=== PATIENT | male | born 1955 | race Caucasian/White ===

== ENCOUNTER → 2017-07-21 08:13 | Outpatient (CLI) | payer MEDICARE ==
[2016-01-22 12:40] VITALS: BMI 35.2
[~2017-07-21 08:13] MED LIST: AMBIEN10 MG PO; AMITRIPTYLINE H50 MG PO; HYDROCODONE-APA1 TAB PO; PHENERGAN25 M1 PO; PRILOSEC20 MG PO; SALINE FLUSH10 ML IV; TORADOL10 MG PO; VANCOMYCIN 1 GM/1 G1 IV; ZOLOFT100 MG PO
== END | disposition home or self-care (01) ==
LOC: D.CT 08:13
DX: R55 Syncope and collapse (principal)

== ENCOUNTER 2017-07-31 06:35 | Outpatient (CLI) | payer MEDICARE ==
--- NOTE | ~2017-07-31 | HEMODYNAMI ---
PATIENT:ASTON WING MEDICAL RECORD: [id number] : 59 LOCATION:[facility] ADMISSION DATE: 07/31/17 Generatedon:07/31/20179:06 Patient name: ASTON WING Patient #: [id number] SSN : : 1955 Date of study: 07/31/2017 Page: Of Hemodynamic Procedure Report Patient Data Patient Demographics Procedure consent was obtained First Name: ASTON Gender: Male Last Name: MACIEJ : 1955 [facility] Initial: RAMAKRISHNA Age: 61 year(s) Patient #: [id number] Race: Additional ID: [id number] Contact details Address: [address] [place] [address] ROAD State: [place] City: [facility] Zip code: [address] Past Medical History Allergies Allergen Reaction Date Comments Reported Penicillins 02/07/2015 Penicillins 07/31/2017 Admission Admission Data Admission Date: 07/31/2017 Admission Time: 6:35 Procedure Procedure Types Cath Procedure Diagnostic Procedure PPM/ICD Loop Recorder Implant Procedure Description Procedure Date Procedure Date: 07/31/2017 Procedure Start Time: 8:59 Procedure End Time: 9:06 Procedure Staff Name Function Osei Jones MD Performing Physician Emiliana Martinez RT Monitor Ernie Spencer RT Scrub Tom Horton RN Nurse Procedure Data Cath Procedure Estimated blood loss: 0 ml Procedure Complications No complications Procedure Medications Medication Administration Route Dosage Vancomycin I.V.P.B 500 mg Versed I.V. 2 mg Hemodynamics Rest Heart Rate: 77 (bpm) Snapshots Pre Cath Intra NCS Post Cath Vital Signs Time Heart Resp SPO2 etCO2 NIBP (mmHg) Rhythm Pain Sedation Rate (ipm) (%) (mmHg) Status Level (bpm) 8:52:03 78 13 98 0 154/84(109) NSR 0 (11) 10(A) , No pain 8:57:02 77 17 97 0 Measuring NSR 0 (11) 10(A) , No pain 8:57:36 80 16 96 0 148/91(117) NSR 0 (11) 10(A) , No pain 9:02:25 85 14 97 0 153/88(121) NSR 0 (11) 10(A) , No pain Medications Time Medication Route Dose Verified Delivered Reason Notes Effectiven ess by by 8:55:40 Vancomycin I.V.P.B 500 Oseicanelo Santos Per mg Karen Horton RN physician MD 8:57:23 Versed I.V. 2 mg Osei Tom for Karen Horton RN sedation MD Procedure Log Time Note 8:30:03 Tom Horton RN sent for patient. Start room use. 8:40:04 Time tracking: Regular hours 8:40:07 Plan of Care:Hemodynamics will remain stable., Cardiac rhythm will remain stable., Comfort level will be maintained., Respiratory function will remain adequate., Patient/ family verbilizes understanding of procedure., Procedure tolerated without complication., Recovers from procedure without complications.. 8:42:00 Stapler Skin 35W Proximate Plus (PMW35) opened to sterile field. 8:42:01 Medtronic Linq Loop Recorder opened to sterile field. 8:44:26 Patient received from Pre/Post Procedure Room to CCL 1 Alert and oriented. Tansferred to table in Supine position. 8:44:27 Warm blankets applied, and perla hugger turned on for patient comfort. 8:44:28 Correct patient and procedure confirmed by team. 8:44:29 Signed procedure consent form obtained from patient. 8:44:30 ECG and BP/O2 sat monitors applied to patient. 8:44:30 Full Disclosure recording started 8:50:57 Vital chart was started 8:55:21 Baseline sample Acquired. 8:55:26 Rhythm: sinus rhythm 8:55:39 H&P Date Dictated: 07/28/2017 Within 30 days and on chart., H&P Addendum completed by physician on day of procedure. (MUST COMPLETE FOR ALL OUTPATIENTS). 8:55:40 Vancomycin 500 mg I.V.P.B was administered by Tom Horton RN; Per physician; 8:55:40 Pre-procedure instructions explained to patient. 8:55:40 Pre-op teaching completed and patient verbalized understanding. 8:55:43 Family in patients room. 8:55:45 Patient NPO since Midnight. 8:55:52 Patient allergic to Penicillins 8:55:55 Is the patient allergic to Iodine/contrast media? No. 8:55:57 Is patient on blood thinner?No 8:55:58 Patient diabetic? No. 8:56:02 Previous problem with sedation/anesthesia? No ? 8:56:02 Snore? Yes 8:56:04 Sleep apnea? No 8:56:11 Deviated septum? No 8:56:11 Opens mouth fully? Yes 8:56:12 Sticks out tongue? Yes 8:56:16 Airway obstruction? Yes COPD 8:56:17 Dentures? No ? 8:56:20 Patient pain scale 0/10 ?. 8:56:24 IV patent on arrival in left hand with 0.9% NaCl at [facility]. 8:56:26 Lab results completed and on chart. 8:56:29 Mid Chest area was prepped with chlora-prep and draped in sterile fashion 8:56:30 Alarms reviewed by R. N. 8:56:30 Sharps counted by scrub and verified by R.N. 8:56:32 Final Timeout: patient, procedure, and site verified with staff and physician. All members of the team are in agreement. 8:56:36 Mid Chest site verified by team. 8:56:40 Physical assessment completed. ASA score P 2 - A patient with mild systemic disease as per Osei Jones MD. 8:56:43 Sedation plan: IV Moderate Sedation Medication:Versed, Fentanyl 8:57:23 Versed 2 mg I.V. was administered by Tom Horton RN; for sedation; 8:58:50 Procedure started. 8:59:01 Lidocaine 2% was administered to mid chest by Osei Jones MD . 9:00:16 Incision made to mid chest. 9:01:08 Linq was inserted subcutaneously to mid chest. 9:01:13 Skin closure was completed with 35mm Okarche. 9:01:23 Procedure ended.(Physican Out) 9:01:46 Insertion/operative site no bleeding no hematoma. 9:01:52 Post procedure rhythm: unchanged. 9:01:57 Estimated blood loss: 0 ml 9:02:10 Post procedure instruction explained to patient.Patient verbalizes understanding. 9:02:11 Patient needs reinforcement of post procedure teaching. 9:02:23 Procedure Complication : No complications 9:02:25 See physician's report for complete and final results. 9:02:31 Tegaderm 4 x 4 (1626W) opened to sterile field. 9:03:56 Procedure and supply charges have been captured, reviewed, submitted and are correct. 9:06:00 Vital chart was stopped 9:06:05 Report given to Pre/Post Procedure Room. 9:06:08 Patient transfered to Pre/Post Procedure Room with Stretcher. 9:06:15 Procedure ended. 9:06:15 Full Disclosure recording stopped 9:06:19 End room use (Document Last) Device Usage Item Name Manufacture Quantity Catalog Hospital Part Current Minimal Lot# / Number Charge Number Stock Stock Serial# Code Stapler Unknown 1 [id number] 5 Skin 35W Proximate Plus (PMW35) Medtronic Medtronic 1 [id number] 5 SN Linq Loop [id number] Recorder EXP 2017-08-12 Tegaderm 3M 1 [id number] 5 4 x 4 (1626W) Signature Audit [place] Stage Time Signature Unsigned Intra-Procedure 07/31/2017 Emiliana 9:06:36 AM Counts RT(R) Signatures Monitor : Emiliana Signature : Counts RT Date : Time : [address] [address]
[2017-07-31] MEDS ORDERED: AMITRIPTYLINE H50 MG PO (06:41)
[2017-07-31] MEDS ORDERED: CLEOCIN HCL300 MG PO (06:41)
[2017-07-31] MEDS ORDERED: IBUPROFEN800 MG PO (06:42)
[2017-07-31] MEDS ORDERED: ANORO ELLIPTA1 EACH INH (06:43)
[2017-07-31] MEDS ORDERED: PROAIR HFA8.5 GM INH (06:44)
[2017-07-31] MEDS ORDERED: LIPITOR40 MG PO (06:44)
[2017-07-31 06:49] VITALS: BP 130/78; BMI 34.3
== END 2017-07-31 10:17 | disposition home or self-care (01) ==
LOC: D.CATH 06:35
DX: R55 Syncope and collapse (principal); I10 Essential (primary) hypertension; F17.200 Nicotine dependence, unspecified, uncomplicated; Z01.812 Encounter for preprocedural laboratory examination

== ENCOUNTER 2017-08-13 06:54 | Outpatient (CLI) | payer MEDICARE ==
[~2017-08-13] VITALS: Ht 177.8 cm; Wt 111.8 kg
--- NOTE | ~2017-08-13 | HEMODYNAMI ---
PATIENT:ASTON WING MEDICAL RECORD: [id number] : 59 LOCATION:[facility] ADMISSION DATE: 08/13/17 Generatedon:08/13/201710:13 Patient name: ASTON WING Patient #: [id number] SSN : : 1955 Date of study: 08/13/2017 Page: Of Hemodynamic Procedure Report Patient Data Patient Demographics Procedure consent was obtained First Name: ASTON Gender: Male Last Name: MACIEJ : 1955 [facility] Initial: RAMAKRISHNA Age: 61 year(s) Patient #: [id number] Race: Additional ID: [id number] Contact details Address: [address] [place] [address] RO[address] State: [place] City: [facility] Zip code: [address] Past Medical History Allergies Allergen Reaction Date Comments Reported Penicillins 02/07/2015 Penicillins 07/31/2017 Admission Admission Data Admission Date: 08/13/2017 Admission Time: 6:54 Procedure Procedure Types Cath Procedure Diagnostic Procedure PPM/ICD PPM Dual Implant Sedation Charges Moderate Sedation up to 30 minutes Procedure Description Procedure Date Procedure Date: 08/13/2017 Procedure Start Time: 9:30 Procedure End Time: 10:07 Procedure Staff Name Function Osei Jones MD Performing Physician Danni Costa RT Monitor Meredith Whalen RT Scrub Tom Horton RN Nurse Procedure Data Cath Procedure Fluoroscopy Diagnostic fluoroscopy Total fluoroscopy Time: 4.6 time: 4.6 min min Diagnostic fluoroscopy Total fluoroscopy dose: 195 dose: 195 mGy mGy Contrast Material Contrast Material Type Amount (ml) Visipaque 270 20 Estimated blood loss: 5 ml Procedure Complications No complications Procedure Medications Medication Administration Route Dosage Vancomycin I.V.P.B 1 g Vancomycin Topical 1 g Irrigation Fentanyl I.V. 50 mcg Versed I.V. 1 mg Fentanyl I.V. 50 mcg Versed I.V. 1 mg Hemodynamics Rest Heart Rate: 75 (bpm) Snapshots Pre Cath Intra NCS Post Cath Vital Signs Time Heart Resp SPO2 NIBP (mmHg) Rhythm Pain Sedation Rate (ipm) (%) Status Level (bpm) 9:17:11 80 15 97 145/107(124) NSR 0 (11) 10(A) , No pain 9:21:35 72 17 100 158/97(126) NSR 0 (11) 10(A) , No pain 9:26:06 70 18 99 159/100(129) NSR 0 (11) 10(A) , No pain 9:30:38 72 18 99 156/96(132) NSR 0 (11) 10(A) , No pain 9:35:11 75 15 96 162/99(140) NSR 0 (11) 9(A) , No pain 9:39:41 77 18 100 158/100(148) NSR 0 (11) 9(A) , No pain 9:44:16 82 17 97 151/117(131) NSR 0 (11) 9(A) , No pain 9:50:00 82 15 97 158/95(130) NSR 0 (11) 9(A) , No pain 9:54:32 79 14 98 134/94(111) NSR 0 (11) 9(A) , No pain 9:58:56 90 17 98 139/105(122) NSR 0 (11) 10(A) , No pain 10:10:16 75 15 99 Time NSR 0 (11) 10(A) Exceeded , No pain Medications Time Medication Route Dose Verified Delivered Reason Notes Effectiven ess by by 9:26:53 Vancomycin I.V.P.B 1 g Osei Tom Per Karen Horton RN physician 9:27:02 Vancomycin Topical 1 g Osei Tom Per Irrigation Karen Horton RN physician 9:31:07 Fentanyl I.V. 50 Osei Tom for mcg Karen Horton RN sedation 9:31:15 Versed I.V. 1 mg Osei Tom for Karen Horton RN sedation 9:34:33 Fentanyl I.V. 50 Osei Tom for mcg Karen Horton RN sedation 9:34:37 Versed I.V. 1 mg Osei Tom for Karen Horton RN sedation Procedure Log Time Note 8:55:32 Tom Horton RN sent for patient. Start room use. 9:05:56 Informed consent obtained and on chart 9:05:59 Diagnostic Cath Status : Elective 9:06:43 Time tracking: Regular hours 9:06:47 Plan of Care:Hemodynamics will remain stable., Cardiac rhythm will remain stable., Comfort level will be maintained., Respiratory function will remain adequate., Patient/ family verbilizes understanding of procedure., Procedure tolerated without complication., Recovers from procedure without complications.. 9:06:58 Patient received from Pre/Post Procedure Room to CCL 3 Alert and oriented. Tansferred to table in Supine position. 9:07:03 Warm blankets applied, and perla hugger turned on for patient comfort. 9:07:04 Correct patient and procedure confirmed by team. 9:07:04 ECG and BP/O2 sat monitors applied to patient. 9:15:50 Vital chart was started 9:15:51 Baseline sample Acquired. 9:15:59 Full Disclosure recording started 9:16:04 H&P Date Dictated: 08/13/2017 Within 30 days and on chart., H&P Addendum completed by physician on day of procedure. (MUST COMPLETE FOR ALL OUTPATIENTS). 9:16:06 Pre-procedure instructions explained to patient. 9:16:06 Pre-op teaching completed and patient verbalized understanding. 9:16:08 Family in waiting room. 9:16:10 Patient NPO since Midnight. 9:16:12 Is the patient allergic to Iodine/contrast media? No. 9:16:13 Was the patient premedicated? No 9:16:15 Is patient on blood thinner?No 9:17:43 Patient diabetic? No. 9:17:46 Previous problem with sedation/anesthesia? No ? 9:17:48 Snore? Yes 9:17:49 Sleep apnea? No 9:17:51 Deviated septum? No 9:17:52 Opens mouth fully? Yes 9:17:53 Sticks out tongue? Yes 9:17:59 Airway obstruction? Yes copd 9:18:02 Dentures? No ? 9:18:07 Pre procedure: right dorsailis pedis pulse 2+ Normal; easily identifiable; not easily obliterated 9:18:10 Pre procedure: left dorsailis pedis pulse 2+ Normal; easily identifiable; not easily obliterated 9:18:17 Patient pain scale 0/10 ?. 9:18:25 IV patent on arrival in right antecubital, left antecubital with 0.9% NaCl at O. 9:18:29 Lab results completed and on chart. 9::55 Alarms reviewed by Mark N. 9::55 Sharps counted by scrub and verified by R.N. 9:19:57 Physician arrived 9::58 --------ALL STOP TIME OUT------ 9::58 Final Timeout: patient, procedure, and site verified with staff and physician. All members of the team are in agreement. 9:20:06 Left chest site verified by team. 9:20:26 Physical assessment completed. ASA score P 2 - A patient with mild systemic disease as per Osei Jones MD. 9:20:31 Sedation plan: IV Moderate Sedation Medication:Versed, Fentanyl 9:26:00 Medtronic business representative Jerome Parish present for procedure. 9:26:11 Grounding pad site Right thigh. 9:26:15 Grounding pad site free from injury. 9:26:53 Vancomycin 1 g I.V.P.B was administered by Tom Horton RN; Per physician; 9:27:02 Vancomycin Irrigation 1 g Topical was administered by Tom Horton RN; Per physician; 9:29:55 Pre sharps counted by scrub and verified by RN: Sutures: 2; Sponges: 5; Stick needles: 2; Skin needles: 2; Blade: 1; Cautery: 1 9:30:11 Procedure started. 9:30:15 Lidocaine 1% was administered to left subclavicular area by Osei Jones MD . 9:30:26 Incision made to left subclavicular area. 9:31:07 Fentanyl 50 mcg I.V. was administered by Tom Horton RN; for sedation; 9:31:15 Versed 1 mg I.V. was administered by Tom Horton RN; for sedation; 9:31:52 Use device set CATH PACK 9:31:55 Medline Cath Pack ([id number]) opened to sterile field. 9:31:56 Bag Decanter (2002) opened to sterile field. 9:32:16 Medtronic Advisa MRI PPM Dual Generator [id number] opened to sterile field. 9:33:27 Medtronic 5076-45 PPM Lead opened to sterile field. 9:34:23 Medtronic 4074-52 PPM Lead opened to sterile field. 9:34:33 Fentanyl 50 mcg I.V. was administered by Tom Horton RN; for sedation; 9:34:37 Versed 1 mg I.V. was administered by Tom Horton RN; for sedation; 9:36:15 Generator pocket made/opened. 9:43:00 Access obtained with 4Fr micropunture. 9:43:05 Left subclavian vein accessed with 7Fr Peel Away Sheath. 9:46:35 Left subclavian vein accessed with 7Fr Peel Away Sheath. 9:52:32 Ventricular lead inserted and advanced. 9:52:37 Atrial lead inserted and advanced. 9:53:02 Ventricular lead positioned. 9:53:10 Peel-a-way sheath was split and removed. 9:53:14 Ventricular lead attachment was completed with 2-0 silk. 9:56:59 Atrial lead positioned. 9:57:00 Peel-a-way sheath was split and removed. 9:57:03 Atrial lead attachment was completed with 2-0 silk. 10:02:05 PPM Dual was attached to lead(s) and inserted into pocket. 10:02:18 Generator was sutured in place with 2-0 silk. 10:04:55 Device pocket was irrigated with Vancomycin. 10:05:00 Subcutaneous closure was completed with 3-0 vicryl. 10:05:08 Skin closure was completed with 35mm Carmi. 10:05:35 Parameters-- Generator: Mode: ?. Lower Rate: 50bpm. Upper Rate: 120bpm. 10:05:43 Procedure ended.(Physican Out) 10:05:53 Fluoroscopy time 04.60 minutes. 10:06:04 Fluoroscopy dose: 195 mGy 10:06:04 Flurop Dose total: 195 10:06:10 Contrast amount:Visipaque 270 20ml. 10:06:20 Sharps counted by scrub and verified by R.N. 10:06:21 Insertion/operative site no bleeding no hematoma. 10:06:49 Post procedure rhythm: paced 10::52 Estimated blood loss: 5 ml 10:06:53 Post procedure instruction explained to patient.Patient verbalizes understanding. 10:06:54 Patient needs reinforcement of post procedure teaching. 10:07:03 Vital chart was stopped 10:07:04 Vital chart was started 10:07:06 Procedure type changed to Cath procedure, Diagnostic procedure, PPM/ICD, PPM Dual Implant, Sedation Charges, Moderate Sedation up to 30 minutes 10:07:08 Procedure and supply charges have been captured, reviewed, submitted and are correct. 10:07:13 Procedure Complication : No complications 10:07:16 See physician's report for complete and final results. 10:07:19 Report given to Pre/Post Procedure Room. 10:07:22 Patient transfered to Pre/Post Procedure Room with Stretcher. 10:07:24 Procedure ended. 10:07:24 Full Disclosure recording stopped 10:08:17 Parameters--Ventricular P/R Wave: 8.7mV. Current: 0.4mA; Threshold: 0.6V; Impedence: 1453OHMS. 10:08:34 Parameters--Atrial P/R Wave: 2.7mV. Current: 0.4mA; Threshold: 1.4V; Impedence: 823OHMS. 10:08:43 Lt Chest incision was dressed with gauze eyepad and tegaderm. 10:09:12 End room use (Document Last) 10:13:21 Vital chart was stopped Device Usage Item Name Manufacture Quantity Catalog Hospital Part Current Minimal L ot# / Serial# Number Charge Number Stock Stock Code [facility] 1 [id number] 5 Feusd ([id number]) Bag Microtek 1 [id number] [id number] 5 fav.or.it Inc. () Medtronic Medtronic 1 A2DR01 [id number] [id number] 5 P [id number] EXP Advisa MRI 0 11-12-2018 PPM Dual Generator A2DR01 Medtronic Medtronic 1 5076-45 [id number] [id number] 5 P [id number] EXP 5076-45 PPM 1 07-21-2018 Lead Medtronic Medtronic 1 4074-52 [id number] [id number] 5 B [id number] 4074-52 PPM E [id number] Lead Signature Audit [place] Stage Time Signature Unsigned Intra-Procedure 08/13/2017 Danni Costa 10:13:17 AM RT(R) Signatures Monitor : Danni Costa RT Signature : Date : Time : [place] [address] [place] [address]
[~2017-08-13 06:54] MED LIST changes: +ANORO ELLIPTA1 EACH INH; +CLEOCIN HCL300 MG PO; +IBUPROFEN800 MG PO; +LIPITOR40 MG PO; +PROAIR HFA8.5 GM INH
[2017-08-13 07:45] VITALS: BP 115/91; Ht 177.8 cm; Wt 111.8 kg
[2017-08-13 08:18] LABS: CALCIUM 8.6 mg/dL (8.5-10.1); CARBON DIOXIDE 27.7 mmol/L (21.0-32.0); CREATININE - SERUM 1.1 mg/dL (0.6-1.3); POTASSIUM - SERUM 4.7 mmol/L (3.5-5.1)
[2017-08-13 08:27] LABS: HEMATOCRIT 43.9 % (42.0-54.0); HEMOGLOBIN 14.9 g/dL (13.5-17.5); MCH 31.4 pg (26.0-34.0); MCHC 33.9 g/dL (31.0-37.0); MCV 92.6 fL (80.0-100.0); MEAN PLATELET VOLUME 9.5 fL (7.4-10.4); RBC 4.74 10x6/uL (4.20-6.10); RDW 13.4 % (11.5-14.5); WBC 11.4 10x3/uL (4.8-10.8)
[2017-08-13 08:30] LABS: APTT 26.5 SECONDS (22.8-39.4); INR 0.95 (0.85-1.17); PROTIME 12.3 SECONDS (11.6-15.0)
[2017-08-14] MEDS ORDERED: HYDROCODONE-APA1 TAB PO (05:29)
[2017-08-14] MEDS ORDERED: PROAIR HFA8.5 GM INH (11:42)
[2017-08-14] MEDS ORDERED: Levaquin PO (11:42)
[2017-08-14] MEDS ORDERED: ELIQUIS5 MG PO (11:43)
[2017-08-14] MEDS ORDERED: LEVAQUIN500 MG PO (13:09)
== END 2017-08-13 16:00 | disposition home or self-care (01) ==
LOC: D.CATH 06:54
PROVIDERS: Internal Medicine Cardiovascular Disease
DX: I44.2 Atrioventricular block, complete (principal); Z01.812 Encounter for preprocedural laboratory examination

== ENCOUNTER 2017-08-13 20:17 | Observation (INO) | payer MEDICARE ==
[~2017-08-13] VITALS: Ht 177.8 cm; Wt 110.0 kg
[2017-08-13 22:43] VITALS: BP 154/74; BMI 35.6
[2017-08-14] VITALS: BP 126/77
[2017-08-14 04:00] VITALS: BP 143/79
[2017-08-14] MEDS ORDERED: HYDROCODONE-APA1 TAB PO (05:29)
[2017-08-14 08:25] VITALS: Ht 177.8 cm; Wt 110.0 kg
[2017-08-14 08:48] VITALS: BP 131/67
[2017-08-14 11:38] VITALS: BP 147/73
[2017-08-14] MEDS ORDERED: Levaquin PO (11:42)
[2017-08-14] MEDS ORDERED: PROAIR HFA8.5 GM INH (11:42)
[2017-08-14] MEDS ORDERED: ELIQUIS5 MG PO (11:43)
[2017-08-14] MEDS ORDERED: LEVAQUIN500 MG PO (13:09)
[2017-08-14 15:09] VITALS: BP 133/68
[2017-08-14 19:00] VITALS: BP 143/86
[2017-08-15 04:00] VITALS: BP 171/91
[2017-08-15 08:10] VITALS: BP 136/78
== END 2017-08-15 09:49 | disposition home or self-care (01) ==
LOC: OBSVTIME 20:17 → D.M2 20:17 → D.MS 20:17 → D.M2 20:25
DX: I82.B12 Acute embolism and thrombosis of left subclavian vein (principal); Z95.0 Presence of cardiac pacemaker; J44.9 Chronic obstructive pulmonary disease, unspecified; F41.8 Other specified anxiety disorders; G47.00 Insomnia, unspecified

== ENCOUNTER → 2017-09-01 07:45 | Outpatient (CLI) | payer MEDICARE ==
[2017-08-14 08:25] VITALS: BMI 35.6
[~2017-09-01 07:45] MED LIST changes: +BAYER CHEWABLE81 MG PO; +DOXYCYCLINE HY100 M2 PO; +ELIQUIS5 MG PO; +LEVAQUIN500 MG PO; +LEVAQUIN750 MG PO; +Levaquin PO; +NICODERM C1 PATCH .2 TRANSDERM; +NITROSTAT0.6 MG SL; +PREDNISONE20 MG PO; +SCOT-TUSSI10 MG/5 ML PO; +TESSALON PERLE100 MG PO
== END | disposition home or self-care (01) ==
LOC: D.US 07:45
DX: M79.602 Pain in left arm (principal)

== ENCOUNTER → 2017-10-02 08:17 | Outpatient (CLI) | payer MEDICARE ==
[2017-08-14 08:25] VITALS: BMI 35.6
--- NOTE | ~2017-10-02 | EC ---
PATIENT:ASTON WING DATE OF SERVICE: 10/02/17 SEX: M MEDICAL RECORD: [id number] DATE OF : 59 [facility] AGE OF PATIENT: 61 ADMISSION DATE: 10/02/17 REFERRING PHYSICIAN: INTERPRETING PHYSICIAN: MICHELLE JONES MD ECHOCARDIOGRAM REPORT ECHO CHARGES 4 ECHO COMPLETE Date: 10/02 CLINICAL DIAGNOSIS: COPD/SYNCOPE/CAD ECHOCARDIOGRAPHIC MEASUREMENTS (adult normal given) AC root (d.<3.7cm) 3.4 cm LV Septum d (<1.2 cm> 1.4 cm Valve Excursion 2.4 cm LV Septum (systole) 1.9 cm Left Atria (s.<4.0cm> 4.0 cm LVPW d(<1.2cm) 1.2 cm RV (d.<2.3cm) 2.8 cm LVPW (sytole) 1.9 cm LV diastole(<5.6CM) 5.7 cm MV E-F(>70mm/sec) cm LV systole 3.4 cm LVOT Diameter 2.1 cm MV exc.(>10mm) cm Est.ejection fraction (50-75%) % DOPPLER: LVIT cm/sec A 65.0 cm/sec E 81.0 cm/sec LA cm/sec RVSP 26.1 mmHg LVOT 131 cm/sec AOP1/2T m/s Asc. Ao 169 cm/sec RVOT 82.0 cm/sec RA cm/sec PA 100 cm/sec AV Gradient Peak 11.4 mmHg AV Mean 5.6 mmHg AV Area 2.6 cm MV Gradient Peak 4.8 mmHg MV Mean 1.7 mmHg MV Area cm COMMENTS: Drupal Architect: Yue EATONOE Master Sheet Clerk: 4 Dr. Jones TAPE# PACS Pericardial Effusion N DATE OF SERVICE: PROCEDURE: Transthoracic echocardiogram. FINDINGS: 1. Left ventricle was difficult to visualize. There is a suggestion of mild left ventricular dilatation with normal function. There is no significant evidence of regional wall motion abnormalities. Ejection fraction again is 55%. 2. The left atrium is mildly dilated. 3. The mitral valve is grossly normal, not well visualized. ECHOCARDIOGRAM REPORT [id number] ASTON WING 4. The tricuspid valve is grossly normal. RVSP is normal. Again, the structures are not well visualized. 5. The right atrium, right ventricle appears to be normal. There is no effusion. Inflow characteristics are normal. IMPRESSION: Overall, this is a fairly normal echocardiogram. The endocardial structures were not well visualized. Overall, ejection fraction is 55%. TRANSINT:[id number] Voice Confirmation ID: [id number] DOCUMENT ID: [id number] MICHELLE JONES MD at 0819 CC: [id number] DICTATION DATE: 10/06/17 1112 WEDGER AND GLUER: 10/06/17 1215 DEP CLI 10/02/17 [place] [id number] [place] [address]
== END | disposition home or self-care (01) ==
LOC: D.ECHO 08:17 → D.RT 10:00
DX: R55 Syncope and collapse (principal); I25.10 Atherosclerotic heart disease of native coronary artery without angina pectoris; E78.5 Hyperlipidemia, unspecified

== ENCOUNTER 2017-10-30 17:56 | Inpatient (IN) | payer MEDICARE ==
[~2017-10-30] VITALS: Ht 177.8 cm; Wt 113.8 kg
--- NOTE | ~2017-10-30 | CN ---
PATIENT NAME:ASTON WING MEDICAL RECORD: [id number] : 59 LOCATION:D.M2 D.2133 ADMIT DATE: 10/30/17 ACCOUNT: [id number] CONSULTING PHYSICIAN: SINDY MARIE MD REFERRING PHYSICIAN: MARLON PATRICIA MD DATE OF CONSULTATION: 11/01/2017 CONSULT REQUESTING PHYSICIAN: Marlon Patricia MD REASON FOR CONSULTATION: Acute exacerbation of COPD. HISTORY: Mr. Wing is a 61-year-old gentleman who, according to the patient, has worsening shortness of breath for the last 3 months. More than a month ago, he was admitted at [facility] with acute exacerbation of COPD, discharged home. Now, for the last few days, he has worsening shortness of breath. He is coughing. He is wheezing. The cough is not productive with significant amount of phlegm. Denies any fever or any chill. He still continues to smoke. REVIEW OF THE SYSTEMS: Mainly in the history of present illness. PAST MEDICAL HISTORY: 1. COPD. 2. Coronary artery disease. 3. Bradycardia, status post pacemaker, most likely for sick sinus syndrome. PAST SURGICAL HISTORY: 1. He had a cholecystectomy. 2. Lumbar discectomy. 3. He had shoulder surgery. 4. He had axillary lymph node removed. 5. He had a tumor removed from right side, most likely cancer. ALLERGIES: ALLERGIC TO PENICILLIN, CEPHALEXIN, AND ISOSORBIDE. MEDICATIONS: [employer] was reviewed. PERSONAL AND SOCIAL HISTORY: The patient still continues to smoke. He is nondrinker. FAMILY HISTORY: Noncontributory. PHYSICAL EXAMINATION: GENERAL: Now, the patient is lying comfortably in bed. He is not in acute distress. VITAL SIGNS: The blood pressure is 138/83, pulse is 111, respiration is 20, temperature is 97.5, SpO2 is 98% on 2 liters nasal cannula. HEENT: Conjunctivae are pink. Sclerae are not icteric. NECK: Neck is supple. No JVD. CHEST: The chest excursion is minimal on both sides. There is no wheeze and no rales. There is prolonged expiration with wheezing. HEART: Rhythm regular. Normal sound. No murmur. ABDOMEN: Abdomen is soft. Bowel sounds present. No hepatosplenomegaly. RECTAL: Deferred. EXTREMITIES: No cyanosis. No clubbing. No pedal edema. CONSULT REPORT [id number] ASTON WING LABORATORY DATA: CBC; WBC 25.4, hemoglobin 13.9, hematocrit 41.5, and platelet count is 232. Chemistry; sodium 139, potassium 4.8, BUN is 19, creatinine 1.1. IMPRESSION: 1. Acute exacerbation of COPD. 2. Acute hypoxic respiratory failure. 3. Pneumonia, left lower lobe, most likely hospital-acquired pneumonia. The patient had recent hospitalization at [facility]. 4. Tobacco dependence syndrome. 5. Leukocytosis. RECOMMENDATION: 1. I will start on methylprednisolone IV, albuterol/ipratropium nebulizer, Brovana and budesonide nebulizer, supplemental oxygen. Start him on Merrem and Levaquin to cover for the hospital-acquired pneumonia. 2. Followup labs and chest radiograph. 3. Check the alpha-1 level. The patient was counseled to quit smoking. Dr. Patricia, thank you for involving me in the care of Mr. Wing. TRANSINT:[id number] Voice Confirmation ID: [id number] DOCUMENT ID: [id number] SINDY MARIE MD at 1806 CC: MARLON PATRICIA [id number] DICTATION DATE: 11/01/17 1622 FENCE ERECTOR SUPERVISOR: 11/01/17 1702 DIS IN 11/05/[address] [address]
--- NOTE | ~2017-10-30 | EC ---
PATIENT:ASTON WING DATE OF SERVICE: 10/30/17 SEX: M MEDICAL RECORD: [id number] DATE OF : [birth year] LOCATION:D.M2 D.213 AGE OF PATIENT: 61 ADMISSION DATE: 10/30/17 REFERRING PHYSICIAN: INTERPRETING PHYSICIAN: TOBIAS SHANNON MD ECHOCARDIOGRAM REPORT ECHO CHARGES 5 ECHO LIMITED Date: 11/01 1 DOPPLER ECHO COLOR FLOW 2 DOPPLER ECHO PULSE CLINICAL DIAGNOSIS: SYNCOPE ECHOCARDIOGRAPHIC MEASUREMENTS (adult normal given) AC root (d.<3.7cm) 0 cm LV Septum d (<1.2 cm> 0 cm Valve Excursion 0 cm LV Septum (systole) 0 cm Left Atria (s.<4.0cm> 0 cm LVPW d(<1.2cm) 0 cm RV (d.<2.3cm) 0 cm LVPW (sytole) 0 cm LV diastole(<5.6CM) 0 cm MV E-F(>70mm/sec) 0 cm LV systole 0 cm LVOT Diameter 0 cm MV exc.(>10mm) 0 cm Est.ejection fraction (50-75%) 0 % DOPPLER: LVIT cm/sec A 0 cm/sec E 0 cm/sec LA 0 cm/sec RVSP 24.1 mmHg LVOT 0 cm/sec AOP1/2T 0 m/s Asc. Ao 0 cm/sec RVOT 0 cm/sec RA 0 cm/sec PA 0 cm/sec AV Gradient Peak 0 mmHg AV Mean 0 mmHg AV Area 0 cm MV Gradient Peak 0 mmHg MV Mean 0 mmHg MV Area 0 cm COMMENTS: LIMITED STUDY (2-D,COLOR,DOPPLER) COMPLETE ECHO DONE ON 10/02/17 Career Development Director: 1 MARY ANN EATONOE Doors Prefitter: 1 Dr. Shannon TAPE# PACS Pericardial Effusion N DATE OF SERVICE: PROCEDURE: Limited echo for ejection fraction. FINDINGS: Left ventricular chamber size is within normal limits. Left ventricular systolic function is normal. Overall ejection fraction estimated 60%. TRANSINT:[id number] Voice Confirmation ID: [id number] DOCUMENT ID: [id number] ECHOCARDIOGRAM REPORT [id number] ASTON WING TOBIAS FRIAS MD at 1403 CC: [id number] DICTATION DATE: 11/02/17 1012 POWER GENERATION PLANT OPERATOR: 11/02/17 1209 DIS IN 11/05/17 [facility] [address], [facility]
--- NOTE | ~2017-10-30 | CN ---
PATIENT NAME:ASTON SHARMA MEDICAL RECORD: [id number] : 59 LOCATION:D. D.2133 ADMIT DATE: 10/30/17 ACCOUNT: [id number] CONSULTING PHYSICIAN: TOBIAS JIMENEZ MD REFERRING PHYSICIAN: HENNA PATRICIA MD DATE OF CONSULTATION: 11/01/2017 DIAGNOSES: 1. Syncope. 2. Chronic obstructive pulmonary disease. 3. Bronchitis. 4. Hypertension. 5. Hyperlipidemia. 6. Sick sinus syndrome. 7. Status post pacemaker. HISTORY OF PRESENT ILLNESS: Mr. Sharma presents with increasing shortness of breath, sputum production, COPD exacerbation as well as bronchitis. He had a coughing episode, which he had syncope. He does not have an ICD. He has a pacemaker. He does not have coronary artery disease. He does not have a cardiomyopathy, last ejection fraction was in the 60% range. REVIEW OF SYSTEMS: The patient reports easy bruising but reports no swollen glands. The patient reports no fever, no night sweats, no significant weight gain, no significant weight loss. No significant exercise tolerance. The patient reports no dry eyes, no irritation, no vision change. Patient reports no difficulty hearing and no ear pain. Patient reports no frequent nose bleeds or nose and sinus problems. Patient reports on arm pain on exertion. No shortness of breath while lying down. No history of heart murmur. Patient reports no cough, no wheezing or coughing up blood. Patient reports no abdominal pain, no vomiting. Normal appetite. No diarrhea and not vomiting blood. No nausea and no constipation. Patient reports no incontinence. No difficulty urinating. No hematuria. No increased frequency. Patient reports no muscle aches. No weakness, no arthralgias, no back pain. No swelling of the extremities. Patient reports no abnormal mole, no jaundice, no rashes. Reports no loss of consciousness. No weakness and no numbness. No seizures, dizziness, or headaches. The patient reports no depression, no sleep disturbance, feeling safe in a relationship and no alcohol abuse. Patient reports on fatigue. Reports no runny nose or sinus pressure. No itching, no hives, and no frequent sneezing. PHYSICAL EXAMINATION: GENERAL APPEARANCE: Well-nourished, well-developed, appears stated age. Level of distress, comfortable. PSYCHIATRIC: Mental status, alert, normal affect. Orientation, oriented to time, place and person. EYES: Lids and conjunctiva, noninjected. No discharge, no pallor. ENT: Lips, teeth, gums, normal dentition. Oropharynx, no cyanosis, no pallor. NECK: Carotid arteries, bilateral normal upstroke, no bruits, no thrills. JUGULAR VEINS: No jugular venous pressure or distention. CERVICAL LYMPH NODES: Nontender, nonenlarged. THYROID: Not enlarged. Nontender. No nodules. LUNGS: Respiratory effort, unlabored. CHEST: Normal curvature. No thoracic deformity. No chest wall tenderness. Percussion, resonant. Auscultation, clear. No wheezes, no rales, no rhonchi. CONSULT REPORT [id number] ASTON SHARMA CARDIOVASCULAR: Precordial exam, nondisplaced. No heaves or pericardial thrills. Rate and rhythm, regular. Heart sounds, normal S1, normal S2. No S3, no gallop, no rub. Systolic murmur, not heard. Diastolic murmur, not heard. EXTREMITIES: No cyanosis, no edema. Peripheral pulses, full and equal in all extremities, except as noted. No bruits appreciated. ABDOMEN: Soft, nondistended. Normal aorta. No bruit. Nontender. No masses. Liver, nontender, no hepatomegaly. Spleen, nontender, no splenomegaly. MUSCULOSKELETAL: No joint tenderness. No joint swelling. No erythema. NEUROLOGICAL: Normal gait, normal strength, normal tone. SKIN: Warm and dry. OVERALL IMPRESSION: Cough, syncope. This is most likely had nothing to do with this. From a cardiac standpoint, we will interrogate the pacemaker. He had an echocardiogram, no other cardiac workup treatment is necessary. TRANSINT:[id number] Voice Confirmation ID: [id number] DOCUMENT ID: [id number] TOBIAS JIMENEZ MD at 1403 CC: [id number] DICTATION DATE: 11/01/17 1050 [employer]: 11/01/17 1509 DIS IN 11/05/17 [facility] [address] [place] [address]
[~2017-10-30 17:56] MED LIST changes: -BAYER CHEWABLE81 MG PO; -DOXYCYCLINE HY100 M2 PO; -LEVAQUIN750 MG PO; -NICODERM C1 PATCH .2 TRANSDERM; -NITROSTAT0.6 MG SL; -PREDNISONE20 MG PO; -SCOT-TUSSI10 MG/5 ML PO; -TESSALON PERLE100 MG PO
[2017-10-30 18:44] LABS: BASOPHILS 0.5 % (0-2); HEMATOCRIT 40.5 % (42.0-54.0); HEMOGLOBIN 13.8 g/dL (13.5-17.5); IMMATURE GRANULOCYTES 1.2 % (0-5); LYMPHOCYTES 18.8 % (15-50); MCH 30.7 pg (26.0-34.0); MCHC 34.1 g/dL (31.0-37.0); MEAN PLATELET VOLUME 9.2 fL (7.4-10.4); MONOCYTES 6.7 % (2-11); NEUTROPHILS 67.8 % (40-80); RDW 14.7 % (11.5-14.5); WBC 10.1 10x3/uL (4.8-10.8)
[2017-10-30 18:53] LABS: INR 0.91 (0.85-1.17); PROTIME 11.9 SECONDS (11.6-15.0)
[2017-10-30 18:54] LABS: PLATELET COUNT 201 10x3/uL (130-400)
[2017-10-30 18:57] LABS: ALBUMIN 2.8 g/dL (3.4-5.0); ALKALINE PHOSPHATASE 107 U/L (46-116); ALT (SGPT) 56 U/L (10-68); BILIRUBIN - TOTAL 0.13 mg/dL (0.2-1.3); CALC OSMOLALITY 281 mosm/kg (275-300); CALCIUM 8.7 mg/dL (8.5-10.1); CARBON DIOXIDE 25.4 mmol/L (21.0-32.0); CHLORIDE - SERUM 105 mmol/L (98-107); GLUCOSE 143 mg/dL (74-106); POTASSIUM - SERUM 3.7 mmol/L (3.5-5.1); SODIUM 141 mmol/L (136-145); UREA NITROGEN 11 mg/dL (7-18); eGFR NON AFRICAN AMERICAN 81 mL/min (90-120)
[2017-10-30 19:09] LABS: CKMB 3.7 U/L (0.0-3.6); CREATINE KINASE 251 UL (21-232); LIPASE 103 U/L (73-393); MAGNESIUM - SERUM 1.7 mg/dL (1.8-2.4); PRO BNP 77 pg/mL (0-125)
[2017-10-30 19:27] LABS: TROPONIN-I < 0.017 ng/mL (0.000-0.060)
[2017-10-30 21:21] LABS: APPEARANCE CLEAR (CLEAR); BILIRUBIN NEGATIVE (NEGATIVE); COLOR YELLOW (YELLOW); GLUCOSE NEGATIVE (NEGATIVE); KETONE NEGATIVE (NEGATIVE); NITRITE NEGATIVE (NEGATIVE); PROTEIN NEGATIVE (NEGATIVE); SPECIFIC GRAVITY 1.015 (1.005-1.020); UROBILINOGEN NORMAL (NORMAL)
[2017-10-30] MEDS ORDERED: BAYER CHEWABLE81 MG PO (23:04)
[2017-10-30] MEDS ORDERED: TESSALON PERLE100 MG PO (23:05)
[2017-10-30] MEDS ORDERED: DOXYCYCLINE HY100 M2 PO (23:05)
[2017-10-30] MEDS ORDERED: NITROSTAT0.6 MG SL (23:06)
[2017-10-31 04:00] VITALS: BP 162/86
[2017-10-31 04:45] VITALS: BP 177/92; BMI 35.2
[2017-10-31 05:00] LABS: BASOPHILS 0.2 % (0-2); EOSINOPHILS 0.1 % (0-7); HEMATOCRIT 42.1 % (42.0-54.0); HEMOGLOBIN 14.4 g/dL (13.5-17.5); IMMATURE GRANULOCYTES 0.9 % (0-5); LYMPHOCYTES 9.8 % (15-50); MCH 30.6 pg (26.0-34.0); MCHC 34.2 g/dL (31.0-37.0); MCV 89.6 fL (80.0-100.0); MEAN PLATELET VOLUME 9.2 fL (7.4-10.4); MONOCYTES 0.9 % (2-11); NEUTROPHILS 88.1 % (40-80); PLATELET COUNT 233 10x3/uL (130-400); RDW 14.7 % (11.5-14.5); WBC 10.6 10x3/uL (4.8-10.8)
[2017-10-31 05:33] LABS: ANION GAP 13.7 mmol/L (8-16); CALCIUM 8.8 mg/dL (8.5-10.1); CARBON DIOXIDE 25.9 mmol/L (21.0-32.0); CREATININE - SERUM 1.1 mg/dL (0.6-1.3)
[2017-10-31 05:34] LABS: POTASSIUM - SERUM 4.6 mmol/L (3.5-5.1)
[2017-10-31 08:21] VITALS: BP 131/68
[2017-10-31 09:43] VITALS: Ht 177.8 cm; Wt 113.8 kg
[2017-10-31 11:46] VITALS: BP 136/77
[2017-10-31 15:49] VITALS: BP 125/50
[2017-10-31 18:31] LABS: CKMB 4.5 U/L (0.0-3.6); CREATINE KINASE 467 UL (21-232); TROPONIN-I < 0.017 ng/mL (0.000-0.060)
[2017-10-31 21:06] VITALS: BP 156/81
[2017-11-01 00:41] LABS: TROPONIN-I 0.026 ng/mL (0.000-0.060)
[2017-11-01 00:49] LABS: CREATINE KINASE 848 UL (21-232)
[2017-11-01 00:50] VITALS: BP 145/71
[2017-11-01 05:59] VITALS: BP 123/73
[2017-11-01 06:15] LABS: HEMATOCRIT 41.5 % (42.0-54.0); HEMOGLOBIN 13.9 g/dL (13.5-17.5); MCH 30.3 pg (26.0-34.0); MCHC 33.5 g/dL (31.0-37.0); MCV 90.4 fL (80.0-100.0); MEAN PLATELET VOLUME 9.1 fL (7.4-10.4); PLATELET COUNT 232 10x3/uL (130-400); RBC 4.59 10x6/uL (4.20-6.10); RDW 15.1 % (11.5-14.5); WBC 25.4 10x3/uL (4.8-10.8)
[2017-11-01 06:37] LABS: CKMB 4.8 U/L (0.0-3.6)
[2017-11-01 06:38] LABS: CREATINE KINASE 995 UL (21-232); TROPONIN-I 0.017 ng/mL (0.000-0.060)
[2017-11-01 07:11] LABS: LYMPHOCYTES 9 % (15-50); MONOCYTES 2 % (2-11); NEUTROPHILS 87 % (40-80); PLATELET ESTIMATE NORMAL
[2017-11-01 08:13] VITALS: BP 128/78
[2017-11-01 09:42] LABS: ALBUMIN 2.8 g/dL (3.4-5.0); ANION GAP 16.7 mmol/L (8-16); BILIRUBIN - TOTAL 0.13 mg/dL (0.2-1.3); CALCIUM 8.7 mg/dL (8.5-10.1); CARBON DIOXIDE 24.1 mmol/L (21.0-32.0); CREATININE - SERUM 1.1 mg/dL (0.6-1.3); POTASSIUM - SERUM 4.8 mmol/L (3.5-5.1); PROTEIN - SERUM 7.1 g/dL (6.4-8.2)
[2017-11-01 12:04] VITALS: BP 142/74
[2017-11-01 15:46] VITALS: BP 138/83
[2017-11-01 22:00] VITALS: BP 138/67
[2017-11-02] VITALS (7 sets, daily range): BP systolic 126–199; BP diastolic 69–87
[2017-11-02 06:10] LABS: HEMATOCRIT 43.7 % (42.0-54.0); HEMOGLOBIN 14.9 g/dL (13.5-17.5); MCH 31.1 pg (26.0-34.0); MCHC 34.1 g/dL (31.0-37.0); MCV 91.2 fL (80.0-100.0); MEAN PLATELET VOLUME 9.5 fL (7.4-10.4); PLATELET COUNT 250 10x3/uL (130-400); RBC 4.79 10x6/uL (4.20-6.10); RDW 15.5 % (11.5-14.5); WBC 25.6 10x3/uL (4.8-10.8)
[2017-11-02 06:40] LABS: ALBUMIN 2.9 g/dL (3.4-5.0); ANION GAP 13.6 mmol/L (8-16); BILIRUBIN - TOTAL 0.2 mg/dL (0.2-1.3); CALCIUM 8.8 mg/dL (8.5-10.1); CARBON DIOXIDE 28.2 mmol/L (21.0-32.0); CREATININE - SERUM 1.1 mg/dL (0.6-1.3); POTASSIUM - SERUM 4.8 mmol/L (3.5-5.1); PROTEIN - SERUM 7.2 g/dL (6.4-8.2)
[2017-11-02 07:02] LABS: LYMPHOCYTES 14 % (15-50); NEUTROPHILS 84 % (40-80); PLATELET ESTIMATE NORMAL
[2017-11-02 07:05] LABS: TEAR DROP CELLS 1+
[2017-11-03] VITALS (7 sets, daily range): BP systolic 90–143; BP diastolic 63–87
[2017-11-03 05:53] LABS: BASOPHILS 0 % (0-2); EOSINOPHILS 0 % (0-7); HEMATOCRIT 43.2 % (42.0-54.0); HEMOGLOBIN 14.5 g/dL (13.5-17.5); IMMATURE GRANULOCYTES 0.6 % (0-5); MCH 30.5 pg (26.0-34.0); MCHC 33.6 g/dL (31.0-37.0); MCV 90.8 fL (80.0-100.0); MEAN PLATELET VOLUME 9.2 fL (7.4-10.4); MONOCYTES 7.4 % (2-11); PLATELET COUNT 234 10x3/uL (130-400); RBC 4.76 10x6/uL (4.20-6.10); RDW 15.2 % (11.5-14.5); WBC 21.6 10x3/uL (4.8-10.8)
[2017-11-03 06:18] LABS: ALBUMIN 2.6 g/dL (3.4-5.0); ANION GAP 11.4 mmol/L (8-16); BILIRUBIN - TOTAL 0.2 mg/dL (0.2-1.3); CALCIUM 8.4 mg/dL (8.5-10.1); CARBON DIOXIDE 28.9 mmol/L (21.0-32.0); CREATININE - SERUM 1.1 mg/dL (0.6-1.3); POTASSIUM - SERUM 4.3 mmol/L (3.5-5.1); PROTEIN - SERUM 6.5 g/dL (6.4-8.2)
[2017-11-04 04:19] VITALS: BP 108/85
[2017-11-04 04:56] LABS: BASOPHILS 0.1 % (0-2); EOSINOPHILS 0 % (0-7); HEMOGLOBIN 15.7 g/dL (13.5-17.5); IMMATURE GRANULOCYTES 0.6 % (0-5); LYMPHOCYTES 13.6 % (15-50); MCH 30.8 pg (26.0-34.0); MCHC 34.1 g/dL (31.0-37.0); MCV 90.4 fL (80.0-100.0); MEAN PLATELET VOLUME 9.4 fL (7.4-10.4); MONOCYTES 4.6 % (2-11); NEUTROPHILS 81.1 % (40-80); PLATELET COUNT 229 10x3/uL (130-400); RBC 5.09 10x6/uL (4.20-6.10); RDW 14.9 % (11.5-14.5)
[2017-11-04 05:06] LABS: WBC 15.6 10x3/uL (4.8-10.8)
[2017-11-04 05:14] LABS: ALBUMIN 2.7 g/dL (3.4-5.0); ALKALINE PHOSPHATASE 88 U/L (46-116); ALT (SGPT) 41 U/L (10-68); CALC OSMOLALITY 283 mosm/kg (275-300); CALCIUM 8.7 mg/dL (8.5-10.1); CARBON DIOXIDE 29.2 mmol/L (21.0-32.0); CHLORIDE - SERUM 104 mmol/L (98-107); POTASSIUM - SERUM 4.7 mmol/L (3.5-5.1); PROTEIN - SERUM 6.8 g/dL (6.4-8.2); SODIUM 138 mmol/L (136-145); UREA NITROGEN 21 mg/dL (7-18); eGFR NON AFRICAN AMERICAN 81 mL/min (90-120)
[2017-11-04 05:21] LABS: GLUCOSE 182 mg/dL (74-106)
[2017-11-04 08:04] VITALS: BP 144/83
[2017-11-04 11:43] VITALS: BP 145/82
[2017-11-04 16:32] VITALS: BP 136/78
[2017-11-04 20:00] VITALS: BP 146/74
[2017-11-05] VITALS: BP 144/90
[2017-11-05 04:00] VITALS: BP 137/86
[2017-11-05 04:21] LABS: BASOPHILS 0.1 % (0-2); EOSINOPHILS 0 % (0-7); HEMOGLOBIN 16.3 g/dL (13.5-17.5); IMMATURE GRANULOCYTES 1.2 % (0-5); LYMPHOCYTES 15.4 % (15-50); MCH 31.2 pg (26.0-34.0); MCV 91.8 fL (80.0-100.0); MEAN PLATELET VOLUME 9.1 fL (7.4-10.4); MONOCYTES 5.1 % (2-11); NEUTROPHILS 78.2 % (40-80); PLATELET COUNT 221 10x3/uL (130-400); RBC 5.23 10x6/uL (4.20-6.10); RDW 14.9 % (11.5-14.5); WBC 20.3 10x3/uL (4.8-10.8)
[2017-11-05 04:52] LABS: ALBUMIN 2.8 g/dL (3.4-5.0); ANION GAP 8.4 mmol/L (8-16); BILIRUBIN - TOTAL 0.2 mg/dL (0.2-1.3); CALCIUM 8.9 mg/dL (8.5-10.1); CARBON DIOXIDE 33.6 mmol/L (21.0-32.0); CREATININE - SERUM 1.2 mg/dL (0.6-1.3); PROTEIN - SERUM 6.7 g/dL (6.4-8.2)
[2017-11-05 08:25] VITALS: BP 132/87
[2017-11-05] MEDS ORDERED: LEVAQUIN750 MG PO (10:27)
[2017-11-05] MEDS ORDERED: NICODERM C1 PATCH .2 TRANSDERM (10:28)
[2017-11-05] MEDS ORDERED: PREDNISONE20 MG PO (10:30)
[2017-11-05] MEDS ORDERED: SCOT-TUSSI10 MG/5 ML PO (10:33)
[2017-11-05 11:26] VITALS: BP 117/79
== END 2017-11-05 12:58 | disposition home or self-care (01) | DRG 177 ==
LOC: D.ER 17:56 → D.M2 21:50 → D.EDHOLD 21:50 → D.M2 22:01
PROVIDERS: Emergency Medicine; Family Medicine; Nurse Practitioner Family
DX: J15.6 Pneumonia due to other Gram-negative bacteria (principal); J96.21 Acute and chronic respiratory failure with hypoxia; J44.0 Chronic obstructive pulmonary disease with (acute) lower respiratory infection; J44.1 Chronic obstructive pulmonary disease with (acute) exacerbation; F17.203 Nicotine dependence unspecified, with withdrawal; J98.11 Atelectasis; Z95.0 Presence of cardiac pacemaker; I10 Essential (primary) hypertension; E78.5 Hyperlipidemia, unspecified

== ENCOUNTER → 2017-12-08 08:24 | Outpatient (CLI) | payer MEDICARE ==
[2017-10-31 09:43] VITALS: BMI 35.1
[~2017-12-08 08:24] MED LIST changes: +BAYER CHEWABLE81 MG PO; +DALIRESP500 MCG PO; +DOXYCYCLINE HY100 M2 PO; +FLORAJEN3 CAPS460 MG PO; +FLUTICASONE PRO16 GM NASAL; +HYDROCHLOROTH12.5 M1 PO; +LASIX20 MG PO; +LEVAQUIN750 MG PO; +NICODERM C1 PATCH .2 TRANSDERM; +NITROSTAT0.6 MG SL; +OMEPRAZOLE20 M1 PO; +PREDNISONE10 MG PO; +PREDNISONE20 MG PO; +SCOT-TUSSI10 MG/5 ML PO; +SYMBICORT 16010.2 GM INH; +TESSALON PERLE100 MG PO
== END | disposition home or self-care (01) ==
LOC: D.CT 08:24
DX: I73.9 Peripheral vascular disease, unspecified (principal)

== ENCOUNTER 2017-12-18 18:00 | Inpatient (IN) | payer MEDICARE ==
[~2017-12-18] VITALS: Ht 177.8 cm; Wt 105.1 kg
--- NOTE | ~2017-12-18 | CN ---
PATIENT NAME:ASTON WING MEDICAL RECORD: [id number] : 59 LOCATION:D.MS [id number] ADMIT DATE: 12/18/17 ACCOUNT: [id number] CONSULTING PHYSICIAN: TOBIAS JIMENEZ MD REFERRING PHYSICIAN: KRISTIAN ANDERSON MD DATE OF CONSULTATION: 12/20/2017 DIAGNOSES: 1. Cough, syncope. 2. Chronic obstructive pulmonary disease. 3. Sick sinus syndrome, status post pacemaker. HISTORY OF PRESENT ILLNESS: Mr. Wing presents with syncope. He had a similar episode in July. He presented with syncope. He does have a pacemaker. He does not have an ICD. Pacemaker is interrogated. No dysrhythmias were present. He had a cardiac catheterization this year showing no significant coronary disease. PHYSICAL EXAMINATION: GENERAL APPEARANCE: Well-nourished, well-developed, appears stated age. Level of distress, comfortable. PSYCHIATRIC: Mental status, alert, normal affect. Orientation, oriented to time, place and person. EYES: Lids and conjunctiva, noninjected. No discharge, no pallor. ENT: Lips, teeth, gums, normal dentition. Oropharynx, no cyanosis, no pallor. NECK: Carotid arteries, bilateral normal upstroke, no bruits, no thrills. JUGULAR VEINS: No jugular venous pressure or distention. CERVICAL LYMPH NODES: Nontender, nonenlarged. THYROID: Not enlarged. Nontender. No nodules. LUNGS: Respiratory effort, unlabored. CHEST: Normal curvature. No thoracic deformity. No chest wall tenderness. Percussion, resonant. Auscultation, clear. No wheezes, no rales, no rhonchi. CARDIOVASCULAR: Precordial exam, nondisplaced. No heaves or pericardial thrills. Rate and rhythm, regular. Heart sounds, normal S1, normal S2. No S3, no gallop, no rub. Systolic murmur, not heard. Diastolic murmur, not heard. EXTREMITIES: No cyanosis, no edema. Peripheral pulses, full and equal in all extremities, except as noted. No bruits appreciated. ABDOMEN: Soft, nondistended. Normal aorta. No bruit. Nontender. No masses. Liver, nontender, no hepatomegaly. Spleen, nontender, no splenomegaly. MUSCULOSKELETAL: No joint tenderness. No joint swelling. No erythema. NEUROLOGICAL: Normal gait, normal strength, normal tone. SKIN: Warm and dry. OVERALL IMPRESSION: Cough, syncope, this is noncardiac in nature. No other cardiac workup or treatment is necessary. TRANSINT:[id number] Voice Confirmation ID: [id number] DOCUMENT ID: [id number] CONSULT REPORT [id number] ASTON WING JEFFREY MD at 1325 CC: [id number] DICTATION DATE: 12/20/17 1253 [employer]: 12/20/17 1530 DIS IN 12/23/17 [place] [id number] [place] [id number]
[~2017-12-18 18:00] MED LIST changes: -DALIRESP500 MCG PO; -FLORAJEN3 CAPS460 MG PO; -FLUTICASONE PRO16 GM NASAL; -HYDROCHLOROTH12.5 M1 PO; -LASIX20 MG PO; -OMEPRAZOLE20 M1 PO; -PREDNISONE10 MG PO; -SYMBICORT 16010.2 GM INH
[2017-12-18 18:29] LABS: BASOPHILS 0.3 % (0-2); EOSINOPHILS 6.4 % (0-7); HEMATOCRIT 39.9 % (42.0-54.0); HEMOGLOBIN 13.6 g/dL (13.5-17.5); IMMATURE GRANULOCYTES 0.7 % (0-5); LYMPHOCYTES 11.6 % (15-50); MCHC 34.1 g/dL (31.0-37.0); MCV 90.9 fL (80.0-100.0); MEAN PLATELET VOLUME 8.9 fL (7.4-10.4); MONOCYTES 5.6 % (2-11); NEUTROPHILS 75.4 % (40-80); PLATELET COUNT 216 10x3/uL (130-400); RBC 4.39 10x6/uL (4.20-6.10)
[2017-12-18 18:43] LABS: ALBUMIN 3.1 g/dL (3.4-5.0); ALKALINE PHOSPHATASE 123 U/L (46-116); ALT (SGPT) 24 U/L (10-68); CALC OSMOLALITY 281 mosm/kg (275-300); CALCIUM 8.5 mg/dL (8.5-10.1); CARBON DIOXIDE 28.9 mmol/L (21.0-32.0); CHLORIDE - SERUM 104 mmol/L (98-107); CREATININE - SERUM 1.4 mg/dL (0.6-1.3); GLUCOSE 124 mg/dL (74-106); PROTEIN - SERUM 7.6 g/dL (6.4-8.2); SODIUM 140 mmol/L (136-145); UREA NITROGEN 18 mg/dL (7-18); eGFR NON AFRICAN AMERICAN 55 mL/min (90-120)
[2017-12-18 18:54] LABS: PRO BNP 17 pg/mL (0-125); TROPONIN-I < 0.017 ng/mL (0.000-0.060)
[2017-12-18 19:30] VITALS: BP 147/76
[2017-12-18 20:30] VITALS: BP 130/72
[2017-12-18 21:45] LABS: APPEARANCE CLEAR (CLEAR); BILIRUBIN NEGATIVE (NEGATIVE); COLOR YELLOW (YELLOW); GLUCOSE NEGATIVE (NEGATIVE); KETONE NEGATIVE (NEGATIVE); NITRITE NEGATIVE (NEGATIVE); PROTEIN NEGATIVE (NEGATIVE); SPECIFIC GRAVITY 1.015 (1.005-1.020); UROBILINOGEN NORMAL (NORMAL)
[2017-12-19 00:51] VITALS: BP 155/80; BMI 35.6
[2017-12-19] MEDS ORDERED: OMEPRAZOLE20 M1 PO (03:05)
[2017-12-19] MEDS ORDERED: SYMBICORT 16010.2 GM INH (03:07)
[2017-12-19 05:41] LABS: BASOPHILS 0.1 % (0-2); EOSINOPHILS 0.1 % (0-7); HEMATOCRIT 42.9 % (42.0-54.0); HEMOGLOBIN 14.5 g/dL (13.5-17.5); IMMATURE GRANULOCYTES 0.9 % (0-5); LYMPHOCYTES 10.9 % (15-50); MCH 30.8 pg (26.0-34.0); MCHC 33.8 g/dL (31.0-37.0); MCV 91.1 fL (80.0-100.0); MEAN PLATELET VOLUME 9.4 fL (7.4-10.4); MONOCYTES 1.5 % (2-11); NEUTROPHILS 86.5 % (40-80); PLATELET COUNT 254 10x3/uL (130-400); RBC 4.71 10x6/uL (4.20-6.10); RDW 15.1 % (11.5-14.5)
[2017-12-19 06:02] LABS: ANION GAP 14.6 mmol/L (8-16); CALCIUM 8.8 mg/dL (8.5-10.1); CARBON DIOXIDE 26.7 mmol/L (21.0-32.0); CREATININE - SERUM 1.5 mg/dL (0.6-1.3); POTASSIUM - SERUM 4.3 mmol/L (3.5-5.1)
[2017-12-19 06:38] VITALS: BP 112/52
[2017-12-19 08:30] VITALS: BP 121/79
[2017-12-19 08:54] VITALS: BMI 35.1
[2017-12-19 12:08] VITALS: Ht 177.8 cm; Wt 105.1 kg
[2017-12-19 12:45] VITALS: BP 128/50
[2017-12-19 16:31] VITALS: BP 104/60
[2017-12-19 22:10] VITALS: BP 108/45
[2017-12-20 05:41] VITALS: BP 98/51
[2017-12-20 06:38] LABS: ANION GAP 13.8 mmol/L (8-16); CALCIUM 8.5 mg/dL (8.5-10.1); CARBON DIOXIDE 26.7 mmol/L (21.0-32.0); CREATININE - SERUM 1.2 mg/dL (0.6-1.3); POTASSIUM - SERUM 4.5 mmol/L (3.5-5.1)
[2017-12-20 07:00] LABS: BASOPHILS 0.1 % (0-2); EOSINOPHILS 0 % (0-7); HEMATOCRIT 40.2 % (42.0-54.0); HEMOGLOBIN 13.7 g/dL (13.5-17.5); IMMATURE GRANULOCYTES 0.5 % (0-5); LYMPHOCYTES 10.1 % (15-50); MCH 30.6 pg (26.0-34.0); MCHC 34.1 g/dL (31.0-37.0); MCV 89.9 fL (80.0-100.0); MEAN PLATELET VOLUME 9.4 fL (7.4-10.4); MONOCYTES 4.8 % (2-11); NEUTROPHILS 84.5 % (40-80); PLATELET COUNT 253 10x3/uL (130-400); RBC 4.47 10x6/uL (4.20-6.10); RDW 15.3 % (11.5-14.5)
[2017-12-20 07:01] LABS: WBC 19.5 10x3/uL (4.8-10.8)
[2017-12-20 09:23] VITALS: BP 133/79
[2017-12-20 12:48] VITALS: BP 125/93
[2017-12-20 17:47] VITALS: BP 145/64
[2017-12-20 22:51] VITALS: BP 125/75
[2017-12-21 04:04] VITALS: BP 119/69
[2017-12-21 06:43] LABS: ANION GAP 9.7 mmol/L (8-16); CALCIUM 8.1 mg/dL (8.5-10.1); CREATININE - SERUM 1.3 mg/dL (0.6-1.3)
[2017-12-21 06:44] LABS: POTASSIUM - SERUM 3.7 mmol/L (3.5-5.1)
[2017-12-21 06:46] LABS: BASOPHILS 0 % (0-2); EOSINOPHILS 0 % (0-7); HEMATOCRIT 43.9 % (42.0-54.0); HEMOGLOBIN 14.8 g/dL (13.5-17.5); IMMATURE GRANULOCYTES 0.8 % (0-5); LYMPHOCYTES 16.4 % (15-50); MCHC 33.7 g/dL (31.0-37.0); MCV 91.8 fL (80.0-100.0); MEAN PLATELET VOLUME 9.3 fL (7.4-10.4); MONOCYTES 5.5 % (2-11); NEUTROPHILS 77.3 % (40-80); PLATELET COUNT 269 10x3/uL (130-400); RBC 4.78 10x6/uL (4.20-6.10); RDW 15.3 % (11.5-14.5); WBC 20.5 10x3/uL (4.8-10.8)
[2017-12-21 08:36] VITALS: BP 124/82
[2017-12-21 12:24] VITALS: BP 140/81
[2017-12-21 16:14] VITALS: BP 137/79
[2017-12-21 19:39] VITALS: BP 143/76
[2017-12-21 23:22] VITALS: BP 96/57
[2017-12-22 06:21] VITALS: BP 97/53
[2017-12-22 06:39] LABS: BASOPHILS 0.1 % (0-2); EOSINOPHILS 0 % (0-7); IMMATURE GRANULOCYTES 0.7 % (0-5); LYMPHOCYTES 19.1 % (15-50); MCH 31.3 pg (26.0-34.0); MCHC 34.1 g/dL (31.0-37.0); MCV 91.7 fL (80.0-100.0); MEAN PLATELET VOLUME 9.1 fL (7.4-10.4); MONOCYTES 5.7 % (2-11); NEUTROPHILS 74.4 % (40-80); PLATELET COUNT 269 10x3/uL (130-400); RDW 15.2 % (11.5-14.5); WBC 17.4 10x3/uL (4.8-10.8)
[2017-12-22 06:55] LABS: ANION GAP 10.3 mmol/L (8-16); CALCIUM 8.4 mg/dL (8.5-10.1); CARBON DIOXIDE 31.3 mmol/L (21.0-32.0); CREATININE - SERUM 1.2 mg/dL (0.6-1.3)
[2017-12-22 07:00] LABS: POTASSIUM - SERUM 4.6 mmol/L (3.5-5.1)
[2017-12-22 08:06] VITALS: BP 104/58
[2017-12-22 11:34] VITALS: BP 94/41
[2017-12-22 15:40] VITALS: BP 121/72
[2017-12-22 20:00] VITALS: BP 138/87
[2017-12-22 23:59] VITALS: BP 111/64
[2017-12-23 04:00] VITALS: BP 123/73
[2017-12-23 06:30] LABS: ANION GAP 10.2 mmol/L (8-16); CALCIUM 8.5 mg/dL (8.5-10.1); CARBON DIOXIDE 33.4 mmol/L (21.0-32.0); CREATININE - SERUM 1.1 mg/dL (0.6-1.3); POTASSIUM - SERUM 4.6 mmol/L (3.5-5.1)
[2017-12-23 07:01] LABS: BASOPHILS 0 % (0-2); EOSINOPHILS 0.3 % (0-7); HEMATOCRIT 43.9 % (42.0-54.0); HEMOGLOBIN 14.9 g/dL (13.5-17.5); IMMATURE GRANULOCYTES 0.9 % (0-5); LYMPHOCYTES 20.4 % (15-50); MCH 30.9 pg (26.0-34.0); MCHC 33.9 g/dL (31.0-37.0); MCV 91.1 fL (80.0-100.0); MEAN PLATELET VOLUME 8.9 fL (7.4-10.4); MONOCYTES 8.4 % (2-11); PLATELET COUNT 260 10x3/uL (130-400); RBC 4.82 10x6/uL (4.20-6.10); RDW 15.2 % (11.5-14.5); WBC 20.1 10x3/uL (4.8-10.8)
[2017-12-23 08:07] VITALS: BP 109/74
[2017-12-23] MEDS ORDERED: PREDNISONE10 MG PO (09:05)
[2017-12-23] MEDS ORDERED: FLUTICASONE PRO16 GM NASAL (09:05)
[2017-12-23] MEDS ORDERED: FLORAJEN3 CAPS460 MG PO (09:05)
[2017-12-23] MEDS ORDERED: DALIRESP500 MCG PO (09:05)
[2017-12-23] MEDS ORDERED: DOXYCYCLINE HY100 M2 PO (09:06)
[2017-12-23] MEDS ORDERED: LASIX20 MG PO (09:06)
== END 2017-12-23 10:18 | disposition home or self-care (01) | DRG 189 ==
LOC: D.ER 18:00 → D.MS 19:49
PROVIDERS: Emergency Medicine; Internal Medicine Nephrology
DX: J96.21 Acute and chronic respiratory failure with hypoxia (principal); J44.1 Chronic obstructive pulmonary disease with (acute) exacerbation; F17.203 Nicotine dependence unspecified, with withdrawal; N17.9 Acute kidney failure, unspecified; J44.0 Chronic obstructive pulmonary disease with (acute) lower respiratory infection; D47.Z2 Castleman disease; J20.9 Acute bronchitis, unspecified; Z95.0 Presence of cardiac pacemaker; R05 Cough; K21.9 Gastro-esophageal reflux disease without esophagitis; R13.10 Dysphagia, unspecified; G47.33 Obstructive sleep apnea (adult) (pediatric); G25.81 Restless legs syndrome; M19.90 Unspecified osteoarthritis, unspecified site; N18.9 Chronic kidney disease, unspecified

== ENCOUNTER 2018-01-19 09:47 | Emergency (ER) | payer MEDICARE ==
[~2018-01-19] VITALS: Ht 177.8 cm; Wt 118.2 kg
[~2018-01-19 09:47] MED LIST changes: +DALIRESP500 MCG PO; +FLORAJEN3 CAPS460 MG PO; +FLUTICASONE PRO16 GM NASAL; +LASIX20 MG PO; +OMEPRAZOLE20 M1 PO; +PREDNISONE10 MG PO; +SYMBICORT 16010.2 GM INH
[2018-01-19 09:53] VITALS: Ht 177.8 cm; Wt 118.2 kg
[2018-01-19 10:59] LABS: ANION GAP 10.7 mmol/L (8-16); BILIRUBIN - TOTAL 0.16 mg/dL (0.2-1.3); CALCIUM 7.7 mg/dL (8.5-10.1); CREATININE - SERUM 1.2 mg/dL (0.6-1.3); POTASSIUM - SERUM 3.7 mmol/L (3.5-5.1)
[2018-01-19 11:22] LABS: BASOPHILS 0.3 % (0-2); EOSINOPHILS 4.6 % (0-7); HEMATOCRIT 40.3 % (42.0-54.0); HEMOGLOBIN 13.4 g/dL (13.5-17.5); IMMATURE GRANULOCYTES 1.4 % (0-5); LYMPHOCYTES 20.6 % (15-50); MCH 30.9 pg (26.0-34.0); MCHC 33.3 g/dL (31.0-37.0); MCV 92.9 fL (80.0-100.0); MEAN PLATELET VOLUME 9.2 fL (7.4-10.4); NEUTROPHILS 65.1 % (40-80); RBC 4.34 10x6/uL (4.20-6.10); RDW 15.3 % (11.5-14.5); WBC 9.4 10x3/uL (4.8-10.8)
[2018-01-19 11:23] LABS: PLATELET COUNT 172 10x3/uL (130-400)
[2018-01-19] MEDS ORDERED: HYDROCHLOROTH12.5 M1 PO (12:52)
[2018-01-19 13:23] VITALS: BP 128/75
== END 2018-01-19 13:24 | disposition home or self-care (01) ==
LOC: D.ER 09:47
PROVIDERS: Emergency Medicine
DX: R06.00 Dyspnea, unspecified (principal); T81.82XA Emphysema (subcutaneous) resulting from a procedure, initial encounter; Z95.0 Presence of cardiac pacemaker; J44.9 Chronic obstructive pulmonary disease, unspecified

== ENCOUNTER 2018-01-19 15:31 | Observation (INO) | payer MEDICARE ==
[~2018-01-19] VITALS: Ht 177.8 cm; Wt 118.2 kg
[~2018-01-19 15:31] MED LIST changes: +HYDROCHLOROTH12.5 M1 PO
[2018-01-19 16:37] LABS: BASOPHILS 0.2 % (0-2); EOSINOPHILS 0 % (0-7); HEMATOCRIT 39.1 % (42.0-54.0); HEMOGLOBIN 13.2 g/dL (13.5-17.5); IMMATURE GRANULOCYTES 1.2 % (0-5); LYMPHOCYTES 6.7 % (15-50); MCH 31.2 pg (26.0-34.0); MCHC 33.8 g/dL (31.0-37.0); MCV 92.4 fL (80.0-100.0); MONOCYTES 1.3 % (2-11); NEUTROPHILS 90.6 % (40-80); PLATELET COUNT 157 10x3/uL (130-400); RBC 4.23 10x6/uL (4.20-6.10); RDW 15.2 % (11.5-14.5)
[2018-01-19 17:10] LABS: ALBUMIN 2.9 g/dL (3.4-5.0); ANION GAP 12.2 mmol/L (8-16); BILIRUBIN - TOTAL 0.2 mg/dL (0.2-1.3); CALCIUM 7.7 mg/dL (8.5-10.1); CARBON DIOXIDE 27.7 mmol/L (21.0-32.0); CREATININE - SERUM 1.4 mg/dL (0.6-1.3); POTASSIUM - SERUM 3.9 mmol/L (3.5-5.1); PROTEIN - SERUM 6.9 g/dL (6.4-8.2)
[2018-01-19 17:15] LABS: WBC 11.8 10x3/uL (4.8-10.8)
[2018-01-19 20:05] VITALS: BP 165/82; Ht 177.8 cm; Wt 118.2 kg
[2018-01-19 21:06] VITALS: BP 144/80
[2018-01-20 04:56] VITALS: BP 130/73
[2018-01-20 06:39] LABS: BASOPHILS 0.1 % (0-2); EOSINOPHILS 0 % (0-7); HEMATOCRIT 38.7 % (42.0-54.0); HEMOGLOBIN 13.2 g/dL (13.5-17.5); IMMATURE GRANULOCYTES 0.8 % (0-5); LYMPHOCYTES 11.5 % (15-50); MCH 31.4 pg (26.0-34.0); MCHC 34.1 g/dL (31.0-37.0); MCV 91.9 fL (80.0-100.0); MEAN PLATELET VOLUME 9.2 fL (7.4-10.4); MONOCYTES 4.2 % (2-11); NEUTROPHILS 83.4 % (40-80); PLATELET COUNT 174 10x3/uL (130-400); RBC 4.21 10x6/uL (4.20-6.10); RDW 15.3 % (11.5-14.5)
[2018-01-20 06:54] LABS: WBC 15.8 10x3/uL (4.8-10.8)
[2018-01-20 07:25] LABS: ALBUMIN 2.7 g/dL (3.4-5.0); ANION GAP 11.9 mmol/L (8-16); BILIRUBIN - TOTAL 0.18 mg/dL (0.2-1.3); CALCIUM 7.9 mg/dL (8.5-10.1); CARBON DIOXIDE 26.3 mmol/L (21.0-32.0); CREATININE - SERUM 1.1 mg/dL (0.6-1.3); POTASSIUM - SERUM 4.2 mmol/L (3.5-5.1); PROTEIN - SERUM 6.6 g/dL (6.4-8.2)
[2018-01-20 09:00] VITALS: BP 145/87
== END 2018-01-20 14:45 | disposition home or self-care (01) ==
LOC: D.MS 15:31 → EDSTATUS 15:32 → D.MS 15:44 → OBSVTIME 15:44 → D.MS 01-20 14:45
PROVIDERS: Family Medicine
DX: T78.3XXA Angioneurotic edema, initial encounter (principal); J44.9 Chronic obstructive pulmonary disease, unspecified; D47.Z2 Castleman disease; I25.10 Atherosclerotic heart disease of native coronary artery without angina pectoris; R06.00 Dyspnea, unspecified; F17.203 Nicotine dependence unspecified, with withdrawal

== ENCOUNTER 2018-06-07 23:58 | Emergency (ER) | payer MEDICARE ==
[~2018-06-07] VITALS: Ht 177.8 cm; Wt 109.1 kg
[2018-06-07 23:59] VITALS: Ht 177.8 cm; Wt 109.1 kg
[2018-06-08 01:06] LABS: BASOPHILS 0.4 % (0-2); EOSINOPHILS 6.4 % (0-7); HEMATOCRIT 41.4 % (42.0-54.0); IMMATURE GRANULOCYTES 0.2 % (0-5); MCH 30.5 pg (26.0-34.0); MCHC 33.8 g/dL (31.0-37.0); MCV 90.2 fL (80.0-100.0); MEAN PLATELET VOLUME 9.1 fL (7.4-10.4); MONOCYTES 6.5 % (2-11); NEUTROPHILS 60.5 % (40-80); RBC 4.59 10x6/uL (4.20-6.10); RDW 14.3 % (11.5-14.5)
[2018-06-08 01:08] LABS: PLATELET COUNT 224 10x3/uL (130-400)
[2018-06-08 01:17] LABS: ALKALINE PHOSPHATASE 79 U/L (46-116); ALT (SGPT) 26 U/L (10-68); APTT 26.5 SECONDS (22.8-39.4); BILIRUBIN - TOTAL 0.08 mg/dL (0.2-1.3); CALC OSMOLALITY 282 mosm/kg (275-300); CALCIUM 8.3 mg/dL (8.5-10.1); CARBON DIOXIDE 24.5 mmol/L (21.0-32.0); CHLORIDE - SERUM 105 mmol/L (98-107); CREATININE - SERUM 0.9 mg/dL (0.6-1.3); GLUCOSE 113 mg/dL (74-106); INR 0.97 (0.85-1.17); POTASSIUM - SERUM 3.8 mmol/L (3.5-5.1); PROTEIN - SERUM 7.2 g/dL (6.4-8.2); PROTIME 12.4 SECONDS (11.6-15.0); SODIUM 142 mmol/L (136-145); UREA NITROGEN 11 mg/dL (7-18); eGFR NON AFRICAN AMERICAN > 90 mL/min (90-120)
[2018-06-08 01:32] LABS: CKMB 3.5 U/L (0.0-3.6); CREATINE KINASE 221 UL (21-232); MAGNESIUM - SERUM 1.9 mg/dL (1.8-2.4); PRO BNP 123 pg/mL (0-125); TROPONIN-I < 0.017 ng/mL (0.000-0.060)
[2018-06-08 03:46] VITALS: BP 139/55
== END 2018-06-08 02:14 | disposition home or self-care (01) ==
LOC: D.ER 23:58
PROVIDERS: Family Medicine
DX: J81.1 Chronic pulmonary edema (principal)